=== PATIENT | male | born 1960 | race Caucasian/White ===

== ENCOUNTER 2021-06-15 05:20 | Day surgery (SDC) | payer MEDICAID ==
[2021-06-14 11:52] LABS: BASOPHILS # (AUTO) 0.1 X10'3 (0-0.2); BASOPHILS % (AUTO) 0.6 % (0-1); EOSINOPHILS # (AUTO) 0.4 X10'3 (0-0.9); HEMATOCRIT 34.8 % (42.0-52.0); HEMOGLOBIN 11.8 g/dl (14.0-17.9); LYMPHOCYTES # (AUTO) 1.2 X10'3 (1.1-4.8); LYMPHOCYTES % (AUTO) 13.3 % (21-51); MEAN CORPUSCULAR HEMOGLOBIN 30.6 PG (27.0-31.0); MEAN CORPUSCULAR VOLUME 89.9 FL (78-98); MEAN PLATELET VOLUME 8.5 FL (7.4-10.4); MONOCYTES # (AUTO) 0.9 X10'3 (0-0.9); MONOCYTES % (AUTO) 10.1 % (2-12); NEUTROPHILS # (AUTO) 6.2 X10'3 (1.8-7.7); PLATELET COUNT 222 X10'3 (140-440); RED BLOOD COUNT 3.87 X10'6 (4.70-6.10); RED CELL DISTRIBUTION WIDTH 12.9 % (11.5-14.5); WHITE BLOOD COUNT 8.8 X10'3 (4.5-11.0)
[2021-06-14 12:00] LABS: PARTIAL THROMBOPLASTIN TIME 27 SECONDS (22-32)
[2021-06-14 12:10] LABS: ALBUMIN 3.1 G/DL (3.4-5.0); ALBUMIN/GLOBULIN RATIO 0.8 (1.1-1.5); ANION GAP 9 (8-16); BILIRUBIN,TOTAL 0.4 MG/DL (0.1-1.0); BLOOD UREA NITROGEN 27 MG/DL (7-18); BUN/CREATININE RATIO 18.6 (5.4-32.0); CHLORIDE 107 MMOL/L (99-107); CREATININE 1.45 MG/DL (0.60-1.10); GLUCOSE 303 MG/DL (70-104); POTASSIUM 4.8 MMOL/L (3.5-5.1); SODIUM 140 MMOL/L (135-145); TOTAL CARBON DIOXIDE 24.3 MMOL/L (24-32); TOTAL PROTEIN 6.9 G/DL (6.4-8.2); eGFR 50 ML/MIN
[2021-06-14 12:11] LABS: ALANINE AMINOTRANSFERASE 26 U/L (12-78); ALKALINE PHOSPHATASE 121 IU/L (46-116); ASPARTATE AMINO TRANSFERASE 14 U/L (10-37)
[2021-06-15] VITALS (13 sets, daily range): BP systolic 138–183; BP diastolic 56–90
[~2021-06-15] VITALS: Ht 170.2 cm; Wt 79.5 kg
[~2021-06-15 05:20] MED LIST: CYCL-1 PO; DOXY100C43 PO; HYDR-4383 PO; LISI-640 PO; LISI1TAB51 PO; LISI20TA28 PO; METF-437 PO; METF500T PO; MUPI22OI30 TP; NAPR500T6 PO; NO HOME MEDS; ONDA4TAB6 PO
[2021-06-15] MEDS ORDERED: dextrose ORAL solution 15 GM/59 ML bottle PO PRN ×2 (06:10)
[2021-06-15] MEDS ORDERED: dextrose 50%-water 50ml dispensing syringe IV PRN ×2 (06:10)
[2021-06-15] MEDS ORDERED: MESSAGE TO PHARMACY PO ONE (06:10)
[2021-06-15] MEDS ORDERED: glucagon, human recombinant 1mg kit SUBCUT PRN (06:10)
[2021-06-15] MEDS ORDERED: insulin Lispro (HumaLOG) vial - multi-dose SQ SCH (06:10)
[2021-06-15] MEDS ORDERED: nitroGLYCERIN 1gm ointment UD TP ONE (06:15)
[2021-06-15] MEDS ORDERED: FURO20TA4 PO (06:17)
[2021-06-15] MEDS ORDERED: FLO0.4C PO (06:17)
[2021-06-15] MEDS ORDERED: ENZA40CA PO (06:17)
[2021-06-15] MEDS ORDERED: CLOP75TA34 PO (06:17)
[2021-06-15] MEDS ORDERED: INSU100I31 SQ (06:17)
[2021-06-15] MEDS ORDERED: CARV6.253 PO (06:17)
[2021-06-15] MEDS ORDERED: HYDR-3968 PO (06:17)
[2021-06-15] MEDS ORDERED: LISI20TA28 PO (06:22)
[2021-06-15] MEDS ORDERED: ATOR10TA87 PO (06:22)
[2021-06-15] MEDS ORDERED: ASPI-1265 PO (06:22)
[2021-06-15] MEDS ORDERED: VITAMIN D (06:22)
[2021-06-15] MEDS ORDERED: IRON (06:22)
[2021-06-15 07:06] LABS: HEMOGLOBIN A1C 8.4 % (4.5-6.2)
[2021-06-15] MEDS ORDERED: fentaNYL/PF 50MCG/1 ML 2ML syringe ONE (08:09)
[2021-06-15] MEDS ORDERED: heparin 1,000unit/ml 10ml vial 10 ML ONE (08:09)
[2021-06-15] MEDS ORDERED: iohexol 350 MG/ML 50ML vial IV ONE (08:09)
[2021-06-15] MEDS ORDERED: midazolam 1 mg/ML 2ml injection ONE (08:09)
[2021-06-15] MEDS ORDERED: LIDOcaine 1% (10mg/ml)w/preservative injection 20ml MDV ONE (08:09)
[2021-06-15] MEDS ORDERED: iohexol 350MG/ML 100ml bottle IV ONE (08:09)
[2021-06-15] MEDS ORDERED: diphenhydrAMINE 25mg capsule PO PRN (08:35)
[2021-06-15] MEDS ORDERED: LORazepam 0.5 MG tablet PO PRN (08:35)
[2021-06-15] MEDS ORDERED: nitroGLYCERIN 0.4mg SUBLingual tab SL PRN (08:35)
[2021-06-15] MEDS ORDERED: HYDROmorphone 1 mg/ml syringe ONE (09:01)
[2021-06-15] MEDS ORDERED: nitroGLYCERIN-Tridil 50MG/D5W 250 ML IV ONE (09:07)
[2021-06-15] MEDS ORDERED: hydrALAZINE 20mg/ml inj. IV ONE (09:08)
[2021-06-15] MEDS ORDERED: lisinopril 20mg tablet PO ONE (09:50)
[2021-06-15] MEDS ORDERED: carvedilol 6.25mg tablet PO ONE (09:50)
--- NOTE | 2021-06-15 09:52 | NUR ---
Verbal order per Dr. Rdz for patient to have a one time dose of Lisinopril and Coreg as patient did not take am medications prior to procedure.
[2021-06-15] MEDS ORDERED: normal saline 1000ml 1,000 ML IV SCH (09:55)
[2021-06-15] MEDS ORDERED: proCHLORperazine 10 MG/2 ml inj IV PRN (09:55)
[2021-06-15] MEDS ORDERED: ondansetron/PF 4mg/2ml inj IV PRN (09:55)
[2021-06-15] MEDS ORDERED: HYDROcodone/acetaminophen 5mg/325mg tablet PO PRN (09:55)
[2021-06-15] MEDS ORDERED: acetaminophen 325mg tablet PO PRN (09:55)
[2021-06-15] MEDS ORDERED: HYDROcodone/acetaminophen 10/325mg tab PO PRN (09:55)
[2021-06-15] MEDS ORDERED: OXAZEpam 15mg capsule PO PRN (09:55)
[2021-06-15] MEDS ORDERED: insulin glargine (Lantus) pen - multi-dose SQ SCH (21:00)
[2021-06-16 11:22] LABS: PSA, FREE 0.15 ng/mL
== END 2021-06-15 16:00 | disposition home or self-care (01) ==
LOC: SSTAY O 05:20
PROVIDERS: ATTEND Internal Medicine Cardiovascular Disease
DX: R94.39 Abnormal result of other cardiovascular function study (principal); I25.10 Atherosclerotic heart disease of native coronary artery without angina pectoris; E11.9 Type 2 diabetes mellitus without complications; E78.5 Hyperlipidemia, unspecified; F12.90 Cannabis use, unspecified, uncomplicated; Z85.46 Personal history of malignant neoplasm of prostate; Z87.442 Personal history of urinary calculi; Z79.01 Long term (current) use of anticoagulants; Z79.899 Other long term (current) drug therapy; Z79.4 Long term (current) use of insulin; Z79.82 Long term (current) use of aspirin
CPT/HCPCS: 36415; 71046; 80053; 82948; 83036; 83880; 84153; 84154; 85025; 85610; 85730; 93458; 99152; C1760; C1769; J0360; J1170; J1644; J1815; J2001; J2250; J3010; J7030; Q9967; 99153; A4620; A6258; J3490

== ENCOUNTER 2022-02-06 11:26 | Emergency (ER) | payer MEDICAID ==
[~2022-02-06] VITALS: Ht 170.2 cm; Wt 82.0 kg
[~2022-02-06 11:26] MED LIST changes: +ASPI-1265 PO; +ATOR10TA87 PO; +CARV6.253 PO; +CLOP75TA34 PO; -CYCL-1 PO; -DOXY100C43 PO; +ENZA40CA PO; +FLO0.4C PO; +FURO20TA4 PO; +HYDR-3968 PO; -HYDR-4383 PO; +INSU100I31 SQ; +IRON; -LISI-640 PO; -LISI1TAB51 PO; -METF-437 PO; -METF500T PO; -MUPI22OI30 TP; -NAPR500T6 PO; -NO HOME MEDS; -ONDA4TAB6 PO; +VITAMIN D
[2022-02-06 12:16] LABS: BASOPHILS # (AUTO) 0.1 X10'3 (0-0.2); BASOPHILS % (AUTO) 0.8 % (0-1); EOSINOPHILS # (AUTO) 0.2 X10'3 (0-0.9); EOSINOPHILS % (AUTO) 2.6 % (0-6); HEMATOCRIT 32.4 % (42.0-52.0); HEMOGLOBIN 11.1 g/dl (14.0-17.9); LYMPHOCYTES # (AUTO) 1.1 X10'3 (1.1-4.8); LYMPHOCYTES % (AUTO) 13.5 % (21-51); MEAN CORPUSCULAR HEMOGLOBIN 29.7 PG (27.0-31.0); MEAN CORPUSCULAR HGB CONC 34.3 g/dL (33.0-36.5); MEAN CORPUSCULAR VOLUME 86.6 FL (78-98); MEAN PLATELET VOLUME 8.8 FL (7.4-10.4); MONOCYTES # (AUTO) 0.7 X10'3 (0-0.9); MONOCYTES % (AUTO) 9.3 % (2-12); NEUTROPHILS # (AUTO) 5.8 X10'3 (1.8-7.7); NEUTROPHILS % (AUTO) 73.8 % (42-75); PLATELET COUNT 171 X10'3 (140-440); RED BLOOD COUNT 3.74 X10'6 (4.70-6.10); RED CELL DISTRIBUTION WIDTH 12.5 % (11.5-14.5); WHITE BLOOD COUNT 7.8 X10'3 (4.5-11.0)
[2022-02-06 12:26] LABS: CLARITY,URINE CLEAR (Clear); GLUCOSE, URINE 500 mg/dl (Neg); KETONES,URINE NEGATIVE (Neg); LEUKOCYTE ESTERASE ,URINE NEGATIVE (Neg); NITRITES, URINE NEGATIVE (Neg); OCCULT BLOOD,URINE SMALL (Neg); PH,URINE 5.5 (4.8-8.0); PROTEIN,URINE 100 mg/dl (Neg); UROBILINOGEN,URINE 0.2 E.U/dL (0.2-1.0)
[2022-02-06 12:31] LABS: ALANINE AMINOTRANSFERASE 28 U/L (12-78); ALBUMIN 3.3 G/DL (3.4-5.0); ALKALINE PHOSPHATASE 146 IU/L (46-116); ANION GAP 8 (8-16); ASPARTATE AMINO TRANSFERASE 18 U/L (10-37); BILIRUBIN,TOTAL 0.4 MG/DL (0.1-1.0); BLOOD UREA NITROGEN 29 MG/DL (7-18); CALCIUM 8.8 MG/DL (8.5-10.1); CHLORIDE 105 MMOL/L (99-107); CREATININE 1.53 MG/DL (0.60-1.10); GLUCOSE 368 MG/DL (70-104); SODIUM 140 MMOL/L (135-145); TOTAL CARBON DIOXIDE 27.1 MMOL/L (24-32); TOTAL PROTEIN 6.7 G/DL (6.4-8.2); eGFR 47 ML/MIN
[2022-02-06 12:35] LABS: COLOR,URINE YELLOW (Yellow); UA COLLECTION TYPE NON-SPECIFIED
[2022-02-06 12:44] LABS: BACTERIA,URINE FEW /HPF (Neg); MUCUS STRANDS FEW /LPF (Neg); RBC,URINE 0-2 /HPF (0-2); SQUAMOUS EPITHELIAL CELL,UR FEW /LPF (FEW); WBC,URINE 0-4 /HPF (0-4)
[2022-02-06 14:23] VITALS: BP 175/91
[2022-02-06] MEDS ORDERED: HYDR-3965 PO (14:54)
[2022-02-06] MEDS ORDERED: SULF1TAB49 PO (14:56)
== END 2022-02-06 15:10 | disposition home or self-care (01) ==
LOC: ER 11:27
DX: T63.311A Toxic effect of venom of black widow spider, accidental (unintentional), initial encounter (principal); R20.8 Other disturbances of skin sensation; L03.115 Cellulitis of right lower limb; I10 Essential (primary) hypertension; I50.9 Heart failure, unspecified; E11.9 Type 2 diabetes mellitus without complications; F15.90 Other stimulant use, unspecified, uncomplicated; Z87.442 Personal history of urinary calculi; Z72.89 Other problems related to lifestyle; Z86.14 Personal history of Methicillin resistant Staphylococcus aureus infection; Z88.1 Allergy status to other antibiotic agents; Z79.82 Long term (current) use of aspirin; Z79.899 Other long term (current) drug therapy; Z79.4 Long term (current) use of insulin; Z85.46 Personal history of malignant neoplasm of prostate; Y92.89 Other specified places as the place of occurrence of the external cause
CPT/HCPCS: 36415; 76882; 80053; 81001; 83605; 84145; 85025; 99284

== ENCOUNTER 2023-05-17 15:12 | Emergency (ER) | payer MEDICAID ==
[~2023-05-17] VITALS: Ht 170.2 cm; Wt 77.3 kg
[2023-05-17 15:15] VITALS: BP_DIAS 136; TEMP 98.8; O2SAT 97
[2023-05-17 15:23] VITALS: RESP 18
[2023-05-17] MEDS ORDERED: furosemide 20MG tablet PO ONE (15:30)
[2023-05-17] MEDS ORDERED: furosemide 40mg tablet PO ONE (15:30)
[2023-05-17] MEDS ORDERED: lisinopril 10 MG tablet PO ONE (15:30)
[2023-05-17] MEDS ORDERED: insulin glargine (Lantus) pen - multi-dose SQ ONE (15:30)
[2023-05-17] MEDS: carVEDilol 12.5mg tablet PO SCH ×2 (15:56→16:14)
[2023-05-17 15:57] VITALS: BP_SYST 241; PULSE 111
== END 2023-05-17 16:33 ==
LOC: ER 15:12
DX: E11.65 Type 2 diabetes mellitus with hyperglycemia (principal); I10 Essential (primary) hypertension; N20.0 Calculus of kidney; F15.10 Other stimulant abuse, uncomplicated; Z86.14 Personal history of Methicillin resistant Staphylococcus aureus infection; Z88.0 Allergy status to penicillin; Z79.899 Other long term (current) drug therapy; Z88.6 Allergy status to analgesic agent
CPT/HCPCS: 82948; 96372; 99284; J1815

== ENCOUNTER 2024-11-03 14:24 | Emergency (ER) | payer MEDICAID ==
[~2024-11-03] VITALS: Ht 170.2 cm; Wt 93.5 kg
[2024-11-03 15:24] VITALS: TEMP 98.9
[2024-11-03 16:03] LABS: BASOPHILS # (AUTO) 0.1 X10'3 (0-0.2); BASOPHILS % (AUTO) 0.5 % (0-1); EOSINOPHILS % (AUTO) 0.3 % (0-6); HEMATOCRIT 36.6 % (42.0-52.0); LYMPHOCYTES # (AUTO) 0.7 X10'3 (1.1-4.8); LYMPHOCYTES % (AUTO) 7.5 % (21-51); MEAN CORPUSCULAR HEMOGLOBIN 29.3 PG (27.0-31.0); MEAN CORPUSCULAR HGB CONC 32.7 g/dL (33.0-36.5); MEAN CORPUSCULAR VOLUME 89.6 FL (78-98); MEAN PLATELET VOLUME 8.4 FL (7.4-10.4); MONOCYTES # (AUTO) 1.2 X10'3 (0-0.9); MONOCYTES % (AUTO) 12.5 % (2-12); NEUTROPHILS # (AUTO) 7.8 X10'3 (1.8-7.7); NEUTROPHILS % (AUTO) 79.2 % (42-75); PLATELET COUNT 242 X10'3 (140-440); RED BLOOD COUNT 4.09 X10'6 (4.70-6.10); RED CELL DISTRIBUTION WIDTH 15.8 % (11.5-14.5); WHITE BLOOD COUNT 9.9 X10'3 (4.5-11.0)
[2024-11-03 16:21] LABS: ALANINE AMINOTRANSFERASE 84 U/L (12-78); ALBUMIN 1.4 G/DL (3.4-5.0); ALBUMIN/GLOBULIN RATIO 0.3 (1.1-1.5); ANION GAP 6 (8-16); ASPARTATE AMINO TRANSFERASE 139 U/L (10-37); BILIRUBIN,TOTAL 0.8 MG/DL (0.1-1.0); BLOOD UREA NITROGEN 32 MG/DL (7-18); BUN/CREATININE RATIO 17.9 (10.0-20.0); CALCIUM 6.9 MG/DL (8.5-10.1); CHLORIDE 106 MMOL/L (99-107); CREATININE 1.79 MG/DL (0.60-1.10); POTASSIUM 3.3 MMOL/L (3.5-5.1); SODIUM 141 MMOL/L (135-145); TOTAL CARBON DIOXIDE 28.7 MMOL/L (24-32); TOTAL PROTEIN 5.6 G/DL (6.4-8.2); eCRCL 39 ML/MIN; eGFR 38 ML/MIN
[2024-11-03 16:34] LABS: ALKALINE PHOSPHATASE 447 IU/L (46-116); GLUCOSE 193 MG/DL (70-104); PRO BRAIN NATRIURETIC PEPTIDE 1583 PG/ML (0-125)
[2024-11-03] MEDS ORDERED: LOSA25TA41 PO (19:29)
[2024-11-03] MEDS ORDERED: AMLO5TAB16 PO (19:29)
[2024-11-03] MEDS ORDERED: OXYC10TA47 PO (19:29)
[2024-11-03 21:25] LABS: BILIRUBIN,URINE NEGATIVE (Neg); CLARITY,URINE CLEAR (Clear); COLOR,URINE YELLOW (Yellow); GLUCOSE, URINE 250 mg/dl (Neg); KETONES,URINE NEGATIVE (Neg); LEUKOCYTE ESTERASE ,URINE NEGATIVE (Neg); NITRITES, URINE NEGATIVE (Neg); OCCULT BLOOD,URINE SMALL (Neg); PROTEIN,URINE 100 mg/dl (Neg); UROBILINOGEN,URINE 0.2 E.U/dL (0.2-1.0)
[2024-11-03] MEDS: dextrose 50%-water 50ml dispensing syringe IV ONE ×2 (21:34→23:05)
[2024-11-03 21:36] LABS: UA COLLECTION TYPE CLN CATCH MIDSTREAM
[2024-11-03] MEDS: ondansetron 4mg rapidly disintigrating tab PO ONE (21:36)
[2024-11-03 21:37] LABS: BACTERIA,URINE NONE SEEN /HPF (Neg); SQUAMOUS EPITHELIAL CELL,UR FEW /LPF (FEW); WBC,URINE 0-4 /HPF (0-4)
[2024-11-03] MEDS: acetaminophen 1,000mg/100ml IV 100 ML IV ONE (22:58)
[2024-11-04 00:39] VITALS: BP 145/76; PULSE 50; RESP 16; O2SAT 96
== END 2024-11-04 00:48 | disposition home or self-care (01) ==
LOC: ER 14:24
DX: J10.1 Influenza due to other identified influenza virus with other respiratory manifestations (principal); R60.0 Localized edema; E11.9 Type 2 diabetes mellitus without complications; I10 Essential (primary) hypertension; F10.90 Alcohol use, unspecified, uncomplicated; F15.90 Other stimulant use, unspecified, uncomplicated; Z88.1 Allergy status to other antibiotic agents; Z79.82 Long term (current) use of aspirin; Z79.899 Other long term (current) drug therapy; Z87.442 Personal history of urinary calculi; Z98.890 Other specified postprocedural states; Z20.822 Contact with and (suspected) exposure to COVID-19; Y90.9 Presence of alcohol in blood, level not specified
CPT/HCPCS: 36415; 71045; 80053; 81001; 82948; 83880; 84145; 84484; 85025; 87502; 87503; 87811; 93005; 96374; 96375; 96376; 99285; J0131; J3490